=== PATIENT | male | born 1985 | race Caucasian/White ===

== ENCOUNTER 2022-06-23 15:53 | Emergency (ER) | payer BC, SELFPAY ==
[2022-06-23 15:54] VITALS: BP 158/132; PULSE 109; RESP 18; TEMP 36.7; O2SAT 98; BMI 38.4
--- NOTE | 2022-06-23 16:11 | EDS_ITS ---
HPI History of Present Illness Chief Complaint: Laceration Informant: patient Narrative Narrative: Patient reached into a riding mower to [employer]. He had turned off the mower but the plates were still spinning. He injured his left hand. He is right-hand dominant. Last tetanus was 7 years ago. Nothing makes this better or worse. No other injuries. He denies numbness but does complain of pain. Patient also has a history to penicillin. He states this was when he was a kid. He has no idea what happened. He has never had any reaction since. He is pretty sure he has had amoxicillin with no problems. There is no report of anaphylaxis. PFSH PFSH Home Medications cephalexin 500 mg capsule 500 mg PO Q6 #40 caps 06/23/22 [Rx Last Taken Unknown] oxycodone-acetaminophen 5 mg-325 mg tablet (Percocet) 1 tab PO Q6H PRN pain 3 days #10 tabs 06/23/22 [Rx Last Taken Unknown] Allergy/AdvReac Type Severity Reaction Status Date / Time Penicillins Allergy Unknown Verified 06/23/22 15:54 Social History Smoking Status: Current every day smoker tobacco type: cigarettes ROS ROS ED Constitutional Constitutional ED: Denies chills or fever(s) Cardiovascular Cardiovascular: Denies chest pain or palpitations Respiratory/Chest Respiratory/Chest: Denies cough Gastrointestinal Gastrointestinal: Denies nausea or vomiting Musculoskeletal Musculoskeletal: Reports arthralgias; Denies myalgias or neck pain Integumentary Reports Abrasions Neurologic Neurologic: Denies paresthesias or weakness Hematologic/Lymphatic Hematologic/Lymphatic: Denies easy bleeding or easy bruising Allergic/Immunologic Allergic/Immunologic ED: Denies urticaria EXAM Physical Exam Const Vital Signs: 06/23/22 15:54 Temperature 98.0 F Temperature Source Temporal Pulse Rate 109 H Respiratory Rate 18 Blood Pressure 158/132 H Blood Pressure Mean 140 Pulse Ox 98 Oxygen Delivery Method Room Air Positive well nourished and well developed General Appearance ED: well developed HEENT atraumatic Resp normal respiratory effort and clear to auscultation bilaterally Cardio regular rhythm GI normal to inspection, nondistended, normoactive bowel sounds Extremity Extremity Narrative: Patient's left hand shows no deformity. There is a laceration on the volar surface of the middle finger over the mid phalanx. No bleeding. There is an avulsion of some skin on the volar surface of the left index slightly more dista lly and medially. There is some avulsion of skin over distal portion of the left ring finger. Patient does have intact sensation in the tip of all fingers. He also has intact both profundus and superficial tendon function of all fingers. Neuro no sensory deficits noted Sensorium / Orientation: alert Psych Mood & Affect: anxious Skin Skin Narrative: See above. MDM MDM MDM Narrative Medical decision making narrative: Procedure: Suture and cleansing of lacerations: We talked the patient about options. We explained that a lot of his lacerations are really torn tissue. He has a lot of avulsed tissue. He has higher risk of infection. We did do digital blocks on his index middle ring and small finger to be able to clean all the little abrasions and cuts. Most of these do not need suturing. We did put 7 interrupted 4-0 Ethilon in the laceration that was a total of 2 cm long on the middle finger. The tip of his index had a small flap that was visible after cleansing. This was thick enough that it might live. I placed 1 stitch at the tip of this just to hold it down. There is also a small tear into the skin with avulsion of skin on the dorsal aspect of this finger. But it does not open up and I do not think it is really amenable to suturing. He had a loss of tissue on the volar lateral aspect of the ring finger. Most of this was very superficial epidermis completely devitalized and was removed. But the distal portion was a slightly thicker somewhat macerated flap. I used 1 suture in this area. The area had been thoroughly scrubbed by myself after a long period of soaking. After soaking in the water he did have wrinkling distally on all fingertips consistent with him having sensation still. I looked at all the wounds. Even on the volar wound of the middle finger I could not see any tendon even with irrigation and cleaning. It was looked at in a clean bloodless field. No active bleeding. The tissue in that area was contused and damaged but we were able to bring it together well. I explained to the patient that he does have a higher risk of infection just because of the tissue injury. He has multiple other small skin tears abrasions and blisters on the fingers. He was given IV antibiotics. We discussed all the signs symptoms of infection. We discussed having this rechecked in a couple days. We discussed returning with any questions, concerns, or signs of infection. Radiography Diagnostic Testing: Clinical Impression(s) from Imaging Studies Hand X-Ray 06/23/22 16:30 IMPRESSION: Tissue injury of the hand without foreign body. There is no underlying fracture or dislocation. Electronically Signed: Armani Roberts DO at 17:05 EDT Reading Location ID and State: [address] [place] [address] Tel [phone], Service support , Three-view x-ray of the hand looked at by me and read by radiology shows no sign of fracture or foreign body. 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
[2022-06-23] MEDS: Morphine 4 MG/ML Syringe IV (16:23)
[2022-06-23] MEDS: DiphenhydrAMINE 50 MG/ML Syringe 25 MG IV (16:23)
[2022-06-23] MEDS: Ondansetron 4 MG/2 ML Vial IV (16:23)
[2022-06-23] MEDS: Cefazolin 1 GM/50 ML BAG IV (16:26)
--- NOTE | 2022-06-23 16:30 | RAD_ITS ---
STUDY: X-RAY - LEFT HAND REASON FOR EXAM: Male, 37 years old. Trauma. Laceration to finger is an anterior hand from lawnmower. TECHNIQUE: 3 view(s) of the hand. COMPARISON: None. FINDINGS: Normal radiocarpal articulation. Normal distal radioulnar joint. Normal visualized carpal bones. Normal carpal articulations Normal carpometacarpal articulation of the thumb. Normal second through fifth carpometacarpal joints. Normal metacarpi. Normal metacarpophalangeal joint of the thumb. Normal interphalangeal joint of the thumb. Normal proximal and distal phalanges of the thumb. Normal metacarpophalangeal joints of the second through fifth fingers. Normal proximal and distal interphalangeal joints of the second through fifth fingers. Normal phalanges of the second through fifth fingers. Soft tissue irregularity about the tips of the third and fourth digits. There is no foreign body. RAD/Hand Min 3 Views IMPRESSION: Tissue injury of the hand without foreign body. There is no underlying fracture or dislocation. Electronically Signed: Armani Roberts DO at 17:05 EDT ,
[2022-06-23] MEDS: Lidocaine 1% (20 ml mdv) 20 ML Vial INFILT (19:55)
[2022-06-23] MEDS: Bupivacaine Mpf 0.5% 30 ML VIAL INFILT (19:55)
--- NOTE | 2022-06-23 20:34 | ED.RN ---
Inpatient pharmacy does not have enough of the Keflex antibiotic to fill for patient tonight. Prescription being send to [facility] in [place].
== END 2022-06-23 20:36 | disposition home or self-care (01) ==
PROVIDERS: Emergency Provider Emergency Medicine; Visit Provider Emergency Medicine
DX: S61.213A Laceration without foreign body of left middle finger without damage to nail, initial encounter (principal); S61.217A Laceration without foreign body of left little finger without damage to nail, initial encounter; F17.210 Nicotine dependence, cigarettes, uncomplicated; W28.XXXA Contact with powered lawn mower, initial encounter; Y93.H2 Activity, gardening and landscaping
CPT/HCPCS: 12001; 73130; 96365; 96375; 99285; J2405

== ENCOUNTER 2024-09-07 13:13 | Inpatient (IN) | payer BC, SELFPAY ==
[2024-09-07] VITALS (9 sets, daily range): BP systolic 135–176; BP diastolic 68–100; PULSE 78–98; RESP 13–20; TEMP 36.6–37.3; O2SAT 95–97; BMI 34.1; BMI 32.7
--- NOTE | 2024-09-07 13:58 | EKG12_ITS ---
Test Reason : CP Blood Pressure : */* mmHG Vent. Rate : 93 BPM Atrial Rate : 93 BPM P-R Int : 162 ms QRS Dur : 108 ms QT Int : 354 ms P-R-T Axes : 50 22 62 degrees QTcB Int : 440 ms Normal sinus rhythm Normal ECG Confirmed by Felipe Angulo ([id number]), visual effects editor MARYLIN PAUL ([id number]) on 09/08/2024 1:22:47 PM Referred By: Jeff Davis Confirmed By: Felipe Angulo
--- NOTE | 2024-09-07 13:59 | RAD_ITS ---
STUDY: X-RAY CHEST REASON FOR EXAM: Male, 39 years old. Chest pain, palpitations TECHNIQUE: PA and lateral views of the chest. COMPARISON: None. FINDINGS: EKG leads overlie the chest The lungs are clear and expanded. There is no demonstrated pleural abnormality. Normal size heart. Normal mediastinum and quinten. Normal visualized pulmonary arteries. Normal visualized aortic arch and descending thoracic aorta. Normal visualized thoracic spine. Normal visualized ribs, clavicles, and shoulders. There is no demonstrated abnormality of the visualized soft tissue structures of the upper abdomen. RAD/Chest PA and Lateral IMPRESSION: Normal x-ray examination of the chest. Electronically Signed: Lavon Barr MD at 14:16 EST ,
--- NOTE | 2024-09-07 14:01 | EX.ED.DYSGE1 ---
HPI History of Present Illness Chief Complaint: Chest Pain Narrative Narrative: Patient is a 39-year-old male with a past medical history of alcohol abuse who presents to the emergency department the chief complaint of wanting alcohol detox. Patient states that he has been drinking for approximately 20 years and states that lately he has been drinking too much and wants to quit. He states that he drinks approximately 20-24 beers a day and will drink alcohol with it. He states that he is never gone through alcohol withdrawal before. He states that he feels that he may be starting to go into this as he has been attempting to slowly wean himself as he needed to go back to work. Patient states that he has never had seizures. He states that her last drink was 10 AM this morning. In the triage note patient notes that there is chest pain on and off for a few days. He states that when he has tried to cut back he states that he feels like his heart is pounding in his chest causing him some discomfort. He states that when he drinks again this is improved. PFSH PFS Medical History Obesity Current every day vaping Chewing tobacco use Former cigarette smoker Alcohol abuse Home Medications ?Medication ?Instructions ?Recorded ?Last Taken ?Type DIATOMACEOUS EARTH PO DAILY CLEANSE SUPPLEMENT 09/07/24 09/07/24 History milk thistle 150 mg capsule 150 mg PO DAILY 09/07/24 09/07/24 History multivitamin (Daily Multi-Vitamin 1 tab PO DAILY 09/07/24 09/07/24 History tablet) Allergy/AdvReac Type Severity Reaction Status Date / Time Penicillins Allergy Unknown Verified 09/07/24 13:14 Surgical History (Updated 09/07/24 @ 15:[address] Anh Haywood MD) S/P appendectomy Social History Smoking Status: Current every day smoker tobacco type: cigarettes ROS ROS ED ROS Narrative Constitutional: Denies any fevers, chills, headaches, lightness, dizziness Eyes: Denies change in vision double vision blurry vision Cardiovascular: Complains of palpitations as noted above Respiratory: Denies coughing wheezing shortness of breath Abdomen: Denies abdominal pain nausea vomiting diarrhea states that he has had decreased appetite last several days : Denies any urinary symptoms Neurological: Denies any numbness, weakness, tingling Musculoskeletal: Denies back pain Skin: Denies rashes or lesions EXAM Physical Exam Narrative Exam Narrative: General: Patient lying in bed rest comfortably did not appear to be acute distress Head: Atraumatic, normocephalic Eyes: PERRL bilaterally, EOMI bilateral, no conjunctival injection noted Neck: Soft, supple, trach midline Cardiovascular: Regular rate and rhythm no murmurs gallops rubs noted Respiratory: Clear to auscultation bilaterally Abdomen: Soft, nondistended, nontender to palpation, bowel sounds present x 4 Extremities: +5/5 strength noted in the bilateral upper and lower extremities, radial pulses +2/4 in the bilateral extremities Neurological: Patient following commands and that he was at [facility] year is 2023 Skin: Warm, dry, intact Const Vital Signs: 09/07/24 13:14 09/07/24 13:54 09/07/24 14:13 Temperature 99.1 F Temperature Source Oral Pulse Rate 98 78 Respiratory Rate 18 16 Respiratory Effort Normal Blood Pressure 141/100 H 157/68 H Blood Pressure Mean 113 97 Blood Pressure Source Blood Pressure Position Blood Pressure Location Pulse Ox 97 96 Oxygen Delivery Method Room Air Room Air 09/07/24 14:19 09/07/24 15:00 09/07/24 15:13 Temperature 98 F 97.8 F Temperature Source Temporal Pulse Rate 89 90 90 Respiratory Rate 15 17 20 H Respiratory Effort Blood Pressure 157/86 H 142/88 H 142/88 H Blood Pressure Mean 109 106 106 Blood Pressure Source Monitor Blood Pressure Position Semi-Fowlers Blood Pressure Location Right Arm Pulse Ox 95 96 95 Oxygen Delivery Method Room Air Room Air MDM MDM MDM Narrative Medical decision making narrative: Patient is a 39-year-old male who presented to the emergency department chief complaint of wanting alcohol detox. Patient will be medically cleared. Once this is completed the case will be discussed with hospitalist for admission. Patient's EKG reviewed and independently interpreted by myself which showed sinus rhythm with a rate of 93 bpm QTc was noted to be 440. Patient CBC was reviewed showed no evidence leukocytosis white blood count normal somewhat 3, hemoglobin 15.6, plate count normal at 234, MCV was 93.5. Patient's sodium normal 139, potassium normal 3.9, creatinine normal at 0.82. Patient's AST and ALT were 54 and 58 respectively. Patient's lipase normal at 55, drug screen pending. Patient's alcohol level was 311. Will discuss case with hospitalist for admission. Discussed case with hospitalist Dr. Haywood who accept patient for admission. Patient will given phenobarbital. Patient was notified is agreeable this plan all question concerns answered at bedside. Lab Data Labs: Laboratory Results - last 24 hr 09/07/24 09/07/24 13:59 14:38 WBC 7.3 RBC 4.90 Hgb 15.6 Hct 45.8 MCV 93.5 MCH 31.8 MCHC 34.1 RDW Std Deviation 42.9 RDW Coeff of Allen 12.5 Plt Count 234 MPV 10.0 Immature Gran % (Auto) 0.500 Neut % (Auto) 68.8 Lymph % (Auto) 25.8 Greer % (Auto) 4.5 Eos % (Auto) 0.0 Baso % (Auto) 0.4 Absolute Neuts (auto) 5.0 Absolute Lymphs (auto) 1.88 Nucleated RBC % 0 Sodium 139 Potassium 3.9 Chloride 105 Carbon Dioxide 24.0 Anion Gap 10 BUN 9 Creatinine 0.82 Estim Creat Clear Calc 142.90 Est GFR (MDRD) Af Amer 133 Est GFR (MDRD) Non-Af 110 BUN/Creatinine Ratio 10.9 Glucose 86 Calcium 9.2 Total Bilirubin 0.60 AST 54 H ALT 58 Alkaline Phosphatase 73 Total Protein 8.8 H Albumin 4.6 Globulin 4.2 Albumin/Globulin Ratio 1.1 Lipase 55 Urine Opiates Screen NEGATIVE Urine Methadone Screen NEGATIVE Ur Barbiturates Screen NEGATIVE Ur Phencyclidine Scrn NEGATIVE Ur Amphetamines Screen NEGATIVE MDMA (Ecstasy) Screen NEGATIVE U Benzodiazepines Scrn NEGATIVE Urine Cocaine Screen NEGATIVE U Cannabinoids Screen POSITIVE H Ur Drug Screen Comment Ethyl Alcohol 311.0 H* Radiography Diagnostic Testing: Clinical Impression(s) from Imaging Studies Chest X-Ray 09/07/24 13:59 IMPRESSION: Normal x-ray examination of the chest. Electronically Signed: Lavon Barr MD at 14:16 EST , Discharge Plan Triage Chief Complaint: Chest Pain ED Provider: Jeff Davis Dx/Rx/DC Orders Clinical Impression: Alcohol abuse, Admitted to alcohol detoxification center Prescriptions: No Action multivitamin [Daily Multi-Vitamin] Tablet 1 tab PO DAILY milk thistle 150 mg capsule 150 mg PO DAILY Rx Instructions: give with meal/snack DIATOMACEOUS EARTH powder PO DAILY Patient Comments: PT STATES THEY MIX WITH WATER EVERY MORNING ON EMPTY STOMACH FOR 10 DAYS, THEN SKIPS 10 DAYS, THEN REPEAT. PT HAS BEEN TAKING FOR YEARS. Primary Care Provider: Care Physician,No Primary Referrals: Care Physician,No Primary [Primary Care Provider] - Print Language: Egyptian Disposition Disposition: Acute Care Hospital [facility]
[2024-09-07 14:15] LABS: Absolute Lymphocyte Count 1.88 X10^3/uL (0.83-4.51); Basophil# 0.03 X10^3/uL; Basophil% 0.4 % (0-1); Hematocrit 45.8 % (40-54); Hemoglobin 15.6 g/dL (13.0-16.5); Lymphocyte # 1.88 X10^3/ul (0.83-4.51); Lymphocyte % 25.8 % (19-41); Mean Corp Hgb Conc 34.1 g/dL (32-36); Mean Corpuscular Hgb 31.8 pg (27.0-32.0); Mean Corpuscular Volume 93.5 fL (80-94); Monocyte# 0.33 X10^3/uL; Monocyte% 4.5 % (0-10); NRBC Flagged by Analyzer 0 % (0-5); Neutrophil # 5.02 X10^3/uL (2.7-7.7); Neutrophil % 68.8 % (47-70); Platelet Count 234 K/mm3 (150-450); RBC Distribution Width CV 12.5 % (11.6-14.6); RBC Distribution Width SD 42.9 fl (35.1-43.9); White Blood Count 7.3 K/mm3 (4.4-11.0)
[2024-09-07 14:28] LABS: ALB/GLOB Ratio 1.1 RATIO (0.9-2.4); AST(SGOT) 54 U/L (15-37); Alanine Aminotransfer ALT/SGPT 58 U/L (16-61); Albumin, Serum 4.6 g/dL (3.2-5.0); Alkaline Phosphatase 73 U/L (45-117); Anion Gap 10 (5-15); BUN 9 mg/dL (7-18); BUN/Creat Ratio 10.9 RATIO (10-20); Calcium,Total 9.2 mg/dL (8.5-10.1); Chloride 105 mmol/L (98-107); Creatinine, Serum 0.82 mg/dL (0.70-1.30); EST Glomerular Filtration Rate 110 mL/min (>60); Est Glom Filt Rate - Afr Amer 133 mL/min (>60); Globulin 4.2 g/dL (2.2-4.2); Glucose 86 mg/dL (74-106); Lipase 55 U/L (13-75); Potassium 3.9 mmol/L (3.5-5.1); Protein, Total 8.8 g/dL (6.4-8.2); Sodium Level 139 mmol/L (136-145)
[2024-09-07 15:03] LABS: Amphetamine Urine VISTA NEGATIVE (<1000 ng/mL); Barbiturate Urine VISTA NEGATIVE (< 200 ng/mL); Benzodiazepine Urine VISTA NEGATIVE (< 200 ng/mL); Cocaine Urine VISTA NEGATIVE (< 300 ng/mL); Ecstacy Urine VISTA NEGATIVE (< 500 ng/mL); Methadone Urine VISTA NEGATIVE (< 300 ng/mL); PCP Urine VISTA NEGATIVE (< 25 ng/mL); THC Urine VISTA POSITIVE (< 50 ng/mL); Vista UDS pH Range 5
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
[2024-09-07] MEDS: Phenobarbital Sodium 130 MG/ML Vial IV (15:21)
[2024-09-07] MEDS: Lactated Ringers 1,000 ML 999 ML IV (15:21)
[2024-09-07 16:29] LABS: Magnesium 2.6 mg/dL (1.6-2.6); Phosphorus 3.3 mg/dL (2.5-4.9)
[2024-09-07] MEDS: Lactated Ringers 1,000 ML 125 ML IV (18:15)
[2024-09-07] MEDS: 0.9% Saline Lock 10 ML Syringe IV (18:17)
[2024-09-07] MEDS: Ibuprofen 600 MG Tablet PO (18:18)
[2024-09-07] MEDS: Lidocaine 2% Viscous15 ML UDC 15 ML PO (18:18)
[2024-09-07] MEDS: Phenobarbital 32.4 MG Tablet 64.8 MG PO ×2 (18:18→22:17)
[2024-09-07] MEDS: hydrOXYzine PAM 25 MG Capsule 50 MG PO (18:18)
[2024-09-07] MEDS: Mag Hydrox/Al Hydrox/Simeth 30 ML UDC PO (18:18)
[2024-09-07] MEDS: Pantoprazole Sodium 20 MG Tablet PO (21:36)
[2024-09-07] MEDS: traZODone 100 MG Tablet PO (21:37)
[2024-09-07] MEDS: LORazepam 1 MG Tablet 2 MG PO (21:37)
[2024-09-08] VITALS (8 sets, daily range): BP systolic 139–166; BP diastolic 75–116; PULSE 87–121; RESP 16–18; TEMP 36.6–37.4; O2SAT 95–96
[2024-09-08] MEDS: Phenobarbital 32.4 MG Tablet 64.8 MG PO ×6 (02:06→21:14)
[2024-09-08] MEDS: hydrOXYzine PAM 25 MG Capsule 50 MG PO ×2 (08:23→21:14)
[2024-09-08] MEDS: Multivitamins,Ther W-Minerals Tablet 1 TABLET PO (08:23)
[2024-09-08] MEDS: Folic Acid 1 MG Tablet PO (08:23)
[2024-09-08] MEDS: Thiamine Hydrochloride 100 MG Tablet PO (08:23)
[2024-09-08] MEDS: Pantoprazole Sodium 20 MG Tablet PO (08:23)
--- NOTE | 2024-09-08 16:53 | PCM.PN.HOSP ---
Reason for Visit Reason for Visit: Diagnoses Alcohol use, unspecified with withdrawal, unspecified (09/07/24) Subjective Subjective Patient still feeling somewhat anxious and sometimes will feel like his heart is pounding but is feeling better today than overnight Objective Data Objective Data Vital Signs: Vital Signs Temp Pulse Resp BP Pulse Ox O2 Del Method 99.4 F H 121 H 18 160/88 H 96 Room Air 09/08/24 14:10 09/08/24 14:10 09/08/24 14:10 09/08/24 14:10 09/08/24 14:10 09/08/24 14:10 Oxygen Delivery Method Room Air Weight: 103.5 kg Body Mass Index (BMI) 32.7 Intake & Output: Intake and Output for Last 24 Hours 09/06/24 09/07/24 09/08/24 23:59 23:59 23:59 Intake Total 1200 / 1200 1200 / 1200 Balance 1200 / 1200 1200 / 1200 Lab / Micro Data 09/07/24 13:59 09/07/24 13:59 Physical Exam Narrative General: Alert, oriented, no apparent distress HEENT: Atraumatic, normocephalic Eyes: Anicteric, normal conjunctiva, extraocular movements grossly intact Neck: Supple Respiratory: Clear to auscultation bilaterally, normal respiratory effort Cardiovascular: Low-grade sinus tachycardia GI: Soft, nontender, nondistended Extremities: No edema Musculoskeletal: Moving all extremities Neuro: No overt focal neurological deficits Skin: No rashes appreciated Psych: Cooperative Assessment & Plan Assessment/Plan (1) Alcohol withdrawal: PLAN: Plan #Alcohol use disorder - We will begin CIWA every 4 for 24 hours, then every 6 for 24 hours, then every 12 until discharge -Will begin phenobarbital taper -Gabapentin 300 mg every 8 as needed -Will start Bentyl and hydroxyzine as needed as well as loperamide as needed -Trazodone 100 mg p.o. nightly as needed sleep -Begin thiamine and folic acid supplementation -Zofran as needed for nausea -Case management consult to assist with discharge planning -EtOH 311 -UDS positive for cannabinoids #Tobacco use -Advise cessation -Nicotine replacement available if desired #DVT ppx: Low risk, ambulatory Tiana Joel MD Charges/Coding Visit Charges Inpatient E&M: 33077 Subs Hosp L1
--- NOTE | 2024-09-08 18:09 | ADDICTION ---
Pt was met with to complete his [facility] assessment, AUDIT, DUDIT, Mt. Stat Exam, ASAM, and D/C Plan. Pt presents as a 39 yr old single heterosexual male admitted to [facility] to address his severe alcohol use disorder and complicated w/d sxs. Pt reports a twenty year hx of daily alcohol consumption that has gotten worse lately d/t adding liquor shots to his usual daily 20-24 beers. Pt admits that he'd like to stop drinking altogether, but he plans to at least stop drinking liquor. Pt was not interested in residential tx or referral for BAM or MH tx. Pt was provided information and contact info for local tx services, 24hr tx navigator hotline, 24 hour peer support hotline, and locations and times of AA meetings. Pt agreed to the discharge plan of returning home and following up by attending the [facility] meeting. Pt agreed to call to schedule BAM or MH tx if he continues to struggle with BAM or MH sxs after d/c from [facility]. Pt admits he does not need transportation home, as family or his girlfriend will transport him home after d/c.
[2024-09-08] MEDS: traZODone 100 MG Tablet PO (21:13)
[2024-09-08] MEDS: 0.9% Saline Lock 10 ML Syringe IV (21:13)
[2024-09-08] MEDS: Ibuprofen 600 MG Tablet PO (21:14)
[2024-09-09 02:37] VITALS: BP 123/93; PULSE 78; RESP 16; TEMP 36.4; O2SAT 97
[2024-09-09] MEDS: Phenobarbital 32.4 MG Tablet 64.8 MG PO ×4 (02:38→14:55)
[2024-09-09 05:50] VITALS: BP 132/76; PULSE 72; RESP 16; TEMP 36.5; O2SAT 97
[2024-09-09 07:30] VITALS: O2SAT 93
[2024-09-09 09:04] VITALS: BP 154/109; PULSE 90; RESP 18; TEMP 36.9; O2SAT 99
[2024-09-09] MEDS: Folic Acid 1 MG Tablet PO (09:06)
[2024-09-09] MEDS: Pantoprazole Sodium 20 MG Tablet PO (09:07)
[2024-09-09] MEDS: Thiamine Hydrochloride 100 MG Tablet PO (09:07)
[2024-09-09] MEDS: Multivitamins,Ther W-Minerals Tablet 1 TABLET PO (09:07)
[2024-09-09 11:50] VITALS: BP 149/101; PULSE 71; RESP 18; TEMP 36.3; O2SAT 99
--- NOTE | 2024-09-09 13:10 | PCM.DC ---
Discharge Instructions Diet Discharge Diet: No restrictions DC O2, CPAP, BIPAP needs Home O2 Discharge instructions: No Dressing / Incision Discharge Activity: Return to Normal Activity Follow Up Care Test Results: Test results from this visit will be discussed in further detail at your follow-up appointment, if applicable. Discharge Plan Admission Admit Date/Time: 09/07/24 15:03 Primary Reason for Your Visit: Alcohol withdrawal Attending Provider: Tiana Joel Primary Care Provider: Care Physician,No Primary Consulting Providers: Anh Haywood Instructions Patient Instructions: Alcohol Addiction, Addiction: Your Treatment Options Additional Instructions / Restrictions: - It is strongly advised that you refrain from any alcohol use. Please call [facility] located at [address] [place], [place] [id number] (ph [phone]) if you are interested in further resources Discharge Orders/Prescriptions Prescriptions: Continued multivitamin [Daily Multi-Vitamin] Tablet 1 tab PO DAILY Discontinued milk thistle 150 mg capsule 150 mg PO DAILY Rx Instructions: give with meal/snack DIATOMACEOUS EARTH powder PO DAILY Patient Comments: PT STATES THEY MIX WITH WATER EVERY MORNING ON EMPTY STOMACH FOR 10 DAYS, THEN SKIPS 10 DAYS, THEN REPEAT. PT HAS BEEN TAKING FOR YEARS. Referrals / Follow Up: Care Physician,No Primary [Primary Care Provider] - Disposition Disposition (needs filled in before D/C Order can be placed): Home, Self Care
--- NOTE | 2024-09-09 13:19 | PCM.DC.SUM ---
Providers Date of Admission: 09/07/24 Date of Discharge: 09/09/24 Primary Care Physician: Tamika Primary Care Phys Reason For Visit: ETOH WITHDRAWAL Diagnosis Discharge Diagnosis (1) Alcohol withdrawal: Status: Acute Code(s): F10.939 - Alcohol use, unspecified with withdrawal, unspecified Plan #Alcohol use disorder #Tobacco use Medications at Discharge Home Medications multivitamin (Daily Multi-Vitamin tablet) 1 tab PO DAILY 09/07/24 Hospital Course Summary of Care Provided Minutes Spent on Discharge: 22 Hospital Course: Patient was admitted requesting detox from alcohol. Patient was admitted and detox protocol ordered. Patient's first dose of phenobarbital was given in the ED earlier in the day on 09/07 so did not show 1 more. Patient did very well on taper with no symptoms and on day of discharge patient feels comfortable discharge home. Patient to be discharged after afternoon dose of phenobarbital. Has no new complaints or concerns on day of discharge Physical Exam Narrative General: Alert, oriented, no apparent distress HEENT: Atraumatic, normocephalic Eyes: Anicteric, normal conjunctiva, extraocular movements grossly intact Neck: Supple Respiratory: Clear to auscultation bilaterally, normal respiratory effort Cardiovascular: Regular rate and rhythm GI: Soft, nontender, nondistended Extremities: No edema Musculoskeletal: Moving all extremities Neuro: No overt focal neurological deficits Skin: No rashes appreciated Psych: Cooperative Weight / BMI Weight Weight: 103.5 kg Body Mass Index (BMI) 32.7 ABG / Lab / Microbiology Data 09/07/24 13:59 09/07/24 13:59 D/C Instructions Discharge Diet: No restrictions DC O2, CPAP, BIPAP Needs Home O2 Discharge instructions: No Meaningful Use Info Meaningful Use Meaningful Use Diagnoses (Choose all that apply): None applicable Ischemic Stroke Statin Dosing Therapy Reference: STATIN DOSE THERAPY REFERENCE: * Patients > 75 years receive moderate or high dose statin therapy. * Patients 75 years or YOUNGER should receive HIGH intensity statin dose unless contraindicated. You will be required to document reason for non-treatment if statin daily dose does not meet guidelines. HIGH DOSE STATIN THERAPY DAILY Atorvastatin > than or = to 40 mg Rosuvastatin > than or = to 20 mg Amlodipine + Atorvastatin > than or = to 2.5/40 mg Ezetimibe + Simvastatin 10/80 mg Simvastatin 80mg Discharge Plan Admission Admit Date/Time: 09/07/24 15:03 Primary Reason for Your Visit: Alcohol withdrawal Attending Provider: Tiana Joel Primary Care Provider: Care Physician,No Primary Consulting Providers: Anh Haywood Instructions Patient Instructions: Alcohol Addiction, Addiction: Your Treatment Options Additional Instructions / Restrictions: - It is strongly advised that you refrain from any alcohol use. [facility] located at [address] [place], [place] [id number] (ph [phone]) if you are interested in further resources Discharge Orders/Prescriptions Prescriptions: Continued multivitamin [Daily Multi-Vitamin] Tablet 1 tab PO DAILY Discontinued milk thistle 150 mg capsule 150 mg PO DAILY Rx Instructions: give with meal/snack DIATOMACEOUS EARTH powder PO DAILY Patient Comments: PT STATES THEY MIX WITH WATER EVERY MORNING ON EMPTY STOMACH FOR 10 DAYS, THEN SKIPS 10 DAYS, THEN REPEAT. PT HAS BEEN TAKING FOR YEARS. Referrals / Follow Up: Care Physician,No Primary [Primary Care Provider] - Disposition Disposition (needs filled in before D/C Order can be placed): Home, Self Care Charges/Coding Visit Charges Inpatient E&M: 70167 Disch Hosp
[2024-09-09] MEDS: Naltrexone Microspheres 380 MG SYRINGE IM (15:13)
[2024-09-09 15:27] VITALS: BP 156/102; PULSE 94; RESP 18; TEMP 36.8; O2SAT 98
== END 2024-09-09 16:00 | disposition home or self-care (01) | DRG 897 ==
LOC: ED 15:29 → PCU 17:03
PROVIDERS: Admitting Provider Family Medicine; Emergency Provider Emergency Medicine; Referring Provider Emergency Medicine; Visit Provider Internal Medicine
DX: F10.239 Alcohol dependence with withdrawal, unspecified (principal); E66.9 Obesity, unspecified; F32.A Depression, unspecified; F12.90 Cannabis use, unspecified, uncomplicated; F41.9 Anxiety disorder, unspecified; F17.290 Nicotine dependence, other tobacco product, uncomplicated; F17.220 Nicotine dependence, chewing tobacco, uncomplicated; R03.0 Elevated blood-pressure reading, without diagnosis of hypertension; F43.10 Post-traumatic stress disorder, unspecified; Z86.69 Personal history of other diseases of the nervous system and sense organs; Z81.1 Family history of alcohol abuse and dependence; Z68.32 Body mass index [BMI] 32.0-32.9, adult; Z88.0 Allergy status to penicillin
CPT/HCPCS: 71046; 80048; 80053; 80307; 82077; 83690; 83735; 84100; 85025; 93005; 97802; 99283; 99406; A4216